=== PATIENT | female | born 1930 | race Caucasian/White ===

== ENCOUNTER 2017-01-17 11:52 | Outpatient (CLI) | payer MEDICARE, OTHER | END 2017-01-17 11:53 | disposition home or self-care (01) | DX: A31.0 Pulmonary mycobacterial infection (principal) ==

== ENCOUNTER 2017-02-17 09:01 | Outpatient (CLI) | payer MEDICARE, OTHER | END 2017-02-17 09:02 | disposition home or self-care (01) | DX: J47.9 Bronchiectasis, uncomplicated (principal) ==

== ENCOUNTER 2017-02-18 08:00 | Outpatient (CLI) | payer MEDICARE, OTHER | END 2017-02-18 08:01 | disposition home or self-care (01) | DX: J47.9 Bronchiectasis, uncomplicated (principal) ==

== ENCOUNTER 2017-02-19 08:00 | Outpatient (CLI) | payer MEDICARE, OTHER | END 2017-02-19 23:59 | DX: J47.9 Bronchiectasis, uncomplicated (principal) ==

== ENCOUNTER 2017-07-23 16:30 | Outpatient (CLI) | payer MEDICARE, OTHER ==
[2017-07-23 18:37] LABS: BASOPHILS % (AUTO) 0.2 %; EOSINOPHILS # (AUTO) 0.1 10^3/uL (0.0-0.7); EOSINOPHILS % (AUTO) 0.7 %; HCT - HEMATOCRIT 39.3 % (37.0-47.0); LYMPHOCYTES # (AUTO) 2.1 10^3/uL (1.5-3.5); LYMPHOCYTES % (AUTO) 20.7 %; MEAN CORPUSCULAR HEMOGLOBIN 31.5 pg (27.0-31.0); MEAN CORPUSCULAR HGB CONC 33.1 g/dL (32.0-36.0); MEAN CORPUSCULAR VOLUME 95.3 fL (81.0-99.0); MEAN PLATELET VOLUME 7.6 fL (7.9-10.8); MONOCYTES # (AUTO) 0.4 10^3/uL (0.0-1.0); MONOCYTES % (AUTO) 4.1 %; NEUTROPHILS # (AUTO) 7.6 10^3/uL (1.5-6.6); NEUTROPHILS % (AUTO) 74.3 %; NUCLEATED RED BLOOD CELLS AUTO 0.1 /100WBC; RED BLOOD COUNT 4.13 10^6/uL (4.20-5.40); RED CELL DISTRIBUTION WIDTH 12.9 % (12.0-15.0); UNCORRECTED WHITE BLOOD COUNT 10.2 x10^3/uL; WHITE BLOOD COUNT 10.2 x10^3/uL (4.8-10.8)
[2017-07-23 19:13] LABS: ALBUMIN/GLOBULIN RATIO 1.1 (1.0-2.2); BILIRUBIN,TOTAL 0.3 mg/dL (0.2-1.0); BUN - BLOOD UREA NITROGEN 26 mg/dL (6-20); CARBON DIOXIDE - CO2 27 mmol/L (21-32); CHLORIDE 97 mmol/L (101-111); CREATININE 0.8 mg/dL (0.4-1.0); GFR - MDRD 68 (>89); GLUCOSE 125 mg/dL (70-100); SODIUM 134 mmol/L (135-145); TOTAL PROTEIN 7.4 g/dL (6.7-8.2)
== END 2017-07-23 16:31 | disposition home or self-care (01) ==
LOC: LAB.R 16:30
PROVIDERS: ATTEND Internal Medicine
DX: J42 Unspecified chronic bronchitis (principal)
CPT/HCPCS: 80053; 85025

== ENCOUNTER 2018-02-23 15:46 | Outpatient (CLI) | payer MEDICARE, OTHER ==
--- NOTE | 2018-02-23 17:00 | XRAY Preliminary Report ---
Exam: XR CHEST 2 VIEW X-RAY IMPRESSION: Acute on chronic lung disease consisting of anterior bibasilar infiltrates. [facility] SITE ID: [id number]
--- NOTE | 2018-02-23 17:37 | XRAY Report ---
EXAM: CHEST RADIOGRAPHY EXAM DATE: 02/23/2018 04:47 PM. CLINICAL HISTORY: Cough for 2 days. COMPARISON: 01/17/2017. 08/11/2016. TECHNIQUE: 2 views. FINDINGS: Lungs/Pleura: Overexpanded. Anterior bibasilar infiltrates, to a lesser degree than previously. No effusion, vascular congestion nor pneumothorax. Mediastinum: Heart and mediastinal contours are unremarkable. Other: None. IMPRESSION: Acute on chronic lung disease consisting of anterior bibasilar infiltrates. [facility] Referring Provider Line: [phone] SITE ID: [id number]
== END 2018-02-23 15:47 | disposition home or self-care (01) ==
LOC: DI 15:46
PROVIDERS: ATTEND Physician Assistant Medical
DX: R05 Cough (principal); R91.8 Other nonspecific abnormal finding of lung field
CPT/HCPCS: 71046

== ENCOUNTER 2018-04-12 16:05 | Outpatient (CLI) | payer MEDICARE, OTHER ==
[2018-04-12 16:25] LABS: BASOPHILS % (AUTO) 0.5 %; EOSINOPHILS # (AUTO) 0.1 10^3/uL (0.0-0.7); HGB - HEMOGLOBIN 11.5 g/dL (12.0-16.0); LYMPHOCYTES # (AUTO) 1.2 10^3/uL (1.5-3.5); LYMPHOCYTES % (AUTO) 13.6 %; MEAN CORPUSCULAR HEMOGLOBIN 32.8 pg (27.0-31.0); MEAN CORPUSCULAR HGB CONC 33.5 g/dL (32.0-36.0); MEAN PLATELET VOLUME 7.6 fL (7.9-10.8); MONOCYTES # (AUTO) 0.5 10^3/uL (0.0-1.0); MONOCYTES % (AUTO) 5.2 %; NEUTROPHILS # (AUTO) 7.1 10^3/uL (1.5-6.6); NEUTROPHILS % (AUTO) 79.7 %; PLT - PLATELET COUNT 168 10^3/uL (130-450); RED BLOOD COUNT 3.52 10^6/uL (4.20-5.40); RED CELL DISTRIBUTION WIDTH 14.1 % (12.0-15.0); WHITE BLOOD COUNT 8.9 x10^3/uL (4.8-10.8)
[2018-04-12 16:40] LABS: ALBUMIN 3.5 g/dL (3.2-5.5); ALBUMIN/GLOBULIN RATIO 1.2 (1.0-2.2); ALKALINE PHOSPHATASE 80 IU/L (42-121); ALT ALANINE AMINOTRANSFERASE < 10 IU/L (10-60); AST ASPARTATE AMINOTRANSFERASE 16 IU/L (10-42); BILIRUBIN,TOTAL 0.6 mg/dL (0.2-1.0); BUN - BLOOD UREA NITROGEN 40 mg/dL (6-20); CALCIUM 8.6 mg/dL (8.5-10.3); CARBON DIOXIDE - CO2 24 mmol/L (21-32); CHLORIDE 100 mmol/L (101-111); CREATININE 1.2 mg/dL (0.4-1.0); GFR - MDRD 42 (>89); GLUCOSE 107 mg/dL (70-100); SODIUM 132 mmol/L (135-145); TOTAL PROTEIN 6.4 g/dL (6.7-8.2)
== END 2018-04-12 16:06 | disposition home or self-care (01) ==
LOC: LAB.R 16:05
PROVIDERS: ATTEND Physician Assistant Medical
DX: R53.1 Weakness (principal)
CPT/HCPCS: 80053; 85025

== ENCOUNTER 2018-04-12 17:09 | Emergency (ER) | payer MEDICARE, OTHER ==
--- NOTE | 2018-04-12 17:48 | ED Physician Documentation ---
PD HPI [facility]AL NEURO - Stated complaint Stated Complaint: DEHYDRATED - Chief complaint Chief Complaint: General - History obtained from History obtained from: Patient, Family (son) - History of Present Illness Timing - duration: Days (2-3 days of general weakness worsening.), Weeks (has felt general malaise and less appetite, some weakness for 1-2 weeks. More notable the past 2-3 days) Timing - details: Gradual onset, Still present, Waxing and waning Severity of deficit: Moderate Associated symptoms: Nausea / vomiting (no vomiting but less appetite and some nausea), Back pain (ongoing). No: Headache, Chest pain, Neck pain, Fever Baseline status: positive: A&OX3, ambulatory, indep Similar symptoms before: Has not had sx before Recently seen: Clinic (today), Other (seen by pain specialist a month ago and Rx Gabapentin new med for back/leg pains.) Review of Systems Constitutional: denies: Fever, Chills, Myalgias Nose: denies: Rhinorrhea / runny nose, Congestion Throat: denies: Sore throat Cardiac: denies: Chest pain / pressure, Palpitations Respiratory: denies: Dyspnea, Cough GI: reports: Nausea. denies: Abdominal Pain, Vomiting, Diarrhea, Bloody / black stool : denies: Dysuria, Frequency, Incontinent Skin: denies: Rash, Lesions Musculoskeletal: reports: Back pain. denies: Extremity swelling Neurologic: reports: Generalized weakness. denies: Focal weakness, Numbness, Near syncope, Altered mental status PD PAST MEDICAL HISTORY - Past Medical History Past Medical History: Yes Cardiovascular: Hypertension Respiratory: None Endocrine/Autoimmune: None GI: None [employer]: None : None HEENT: None Psych: None Musculoskeletal: Osteoarthritis Derm: None - Past Surgical History Past Surgical History: Yes General: Appendectomy Ortho: Spine surgery /[employer]: Hysterectomy - Present Medications Home Medications: Ambulatory Orders Medication Instructions Recorded Confirmed Acetaminophen [Tylenol] 650 mg PO Q6H PRN 06/16/13 06/16/13 Alprazolam [Alprazolam] 0.5 mg PO DAILY 06/16/13 06/16/13 Aspirin [Aspirin EC] 325 mg PO DAILY 06/16/13 06/16/13 Carbidopa/Levodopa [Carbidopa-Levo 1 each PO DAILY 06/16/13 06/16/13 25-100 mg Odt] Cranberry Conc/Ascorbic Acid 1 each PO 06/16/13 06/16/13 [Cranberry 12,600 mg Softgel] DULoxetine [Cymbalta] 60 mg PO DAILY 06/16/13 06/16/13 Docusate Calcium [Surfak] 240 mg PO 06/16/13 06/16/13 Estradiol Hemihydrt,Micronized 0.5 mg PO DAILY 06/16/13 06/16/13 [Estradiol] Folic Acid 1 mg PO 06/16/13 06/16/13 Gluc HCl/MSM/C/Mn/Pavo/Ging [MSM 1 each PO 06/16/13 06/16/13 Glucosamine Complex Tab] HYDROcod/ACETAM 5/325 [Vicodin 1 ea PO Q6H PRN #10 tablet 06/16/13 5/325] Levothyroxine [Synthroid] 50 mcg PO QDAC 06/16/13 06/16/13 Losartan [Cozaar] 50 mg PO DAILY 06/16/13 06/16/13 [place]-3 Fatty Acids [Fish Oil] 500 mg PO 06/16/13 06/16/13 Omeprazole [PriLOSEC] 20 mg PO DAILY 06/16/13 06/16/13 Vit B Cmplx No3/FA/C/Biot/Zinc 1 tab PO DAILY 06/16/13 06/16/13 [Nephplex Rx Tablet] Vit D3/Folic Acid/B2/B6/B12 1 each PO DAILY 06/16/13 06/16/13 [Folgard Tablet] amLODIPine [Norvasc] 5 mg PO DAILY 06/16/13 06/16/13 Meclizine [Antivert] 12.5 mg PO Q6H PRN #15 tablet 06/26/14 Albuterol Sulf [Ventolin Hfa 1 - 2 puffs INH Q4HR PRN #1 inhaler 08/11/16 Inhaler] Azithromycin [Zithromax] 250 mg PO DAILY #6 tablet 08/11/16 predniSONE [Deltasone] 10 mg PO DAILY #26 tablet 08/11/16 - Allergies Allergies/Adverse Reactions: Allergies Allergy/AdvReac Type Severity Reaction Status Date / Time GALLO Inhibitors AdvReac Severe Respiratory Verified 06/16/13 00:45 fluoxetine HCl * AdvReac Intermediate Rash Verified 06/16/13 00:44 [From Prozac] - Social History Does the pt smoke?: No Smoking Status: Never smoker Does the pt drink ETOH?: Yes Does the pt have substance abuse?: No - Immunizations Immunizations are current?: Yes - POLST Patient has POLST: No PD ED PE NORMAL - Vitals Vital signs reviewed: Yes - General General: Alert and oriented X 3, No acute distress, Well developed/nourished - HEENT HEENT: Moist mucous membranes, Pharynx benign - Neck Neck: Supple, no meningeal sign, No adenopathy, No JVD - Cardiac Cardiac: RRR, No murmur - Respiratory Respiratory: Clear bilaterally - Abdomen Abdomen: Normal bowel sounds, Soft, Non tender, Non distended - Back Back: No CVA TTP - Derm Derm: Normal color - Extremities Extremities: No deformity, No tenderness to palpate, Normal ROM s pain, No edema , No calf tenderness / cord - Neuro Neuro: Alert and oriented X 3, No motor deficit, Normal speech Results - Vitals Vitals: Vital Signs - 24 hr 04/12/18 04/12/18 04/12/18 17:15 18:35 20:41 Temperature 36.1 C L 36.0 C L Heart Rate 69 95 78 Respiratory 18 18 18 Rate Blood Pressure 110/47 L 117/70 136/57 H O2 Saturation 93 99 99 Oxygen O2 Source Room air PD MEDICAL DECISION MAKING - ED course Complexity details: reviewed results, re-evaluated patient (feeling okay with the IV fluids. ), considered differential (seen in office with labs done there and UA. sent to ED for IV fluids. Her symptoms recently could also relate to new Rx of Gabapentin started a month ago. She says it did not feel like it was helping her leg pains anyway. ), d/w patient - Sepsis Event Vital Signs: Vital Signs - 24 hr 04/12/18 04/12/18 04/12/18 17:15 18:35 20:41 Temperature 36.1 C L 36.0 C L Heart Rate 69 95 78 Respiratory 18 18 18 Rate Blood Pressure 110/47 L 117/70 136/57 H O2 Saturation 93 99 99 Oxygen O2 Source Room air Departure - Departure Disposition: 01 Home, Self Care Clinical Impression: Dehydration, General weakness Condition: Stable Record reviewed to determine appropriate education?: Yes Follow-Up: Good,Lety B, PA-C [Primary Care Provider] - Comments: Hold the Gabapentin medication for 5 days. Other medications as usual. Encourage regular fluids. Forms: Activity restrictions Discharge Date/Time: 04/12/18 20:43
[2018-04-12] MEDS ORDERED: SODIUM CHLORIDE 0.9% 1,000 ML IV ONE ×2 (18:13)
[2018-04-12 20:42] VITALS: BP 136/57
== END 2018-04-12 20:43 | disposition home or self-care (01) ==
LOC: ED 17:09
DX: E86.0 Dehydration (principal); R53.1 Weakness; I10 Essential (primary) hypertension; Z79.82 Long term (current) use of aspirin
CPT/HCPCS: 80053; 83690; 84484; 85025; 96360; 96361; 99283; 99284